=== PATIENT | male | born 1980 | race Caucasian/White ===

== ENCOUNTER → 2021-03-12 | Emergency (ER) | payer MEDICAID ==
[~2021-03-12] VITALS: Ht 182.9 cm; Wt 79.0 kg
[~2021-03-12] MED LIST: CEPH250T PO; SULF1TAB49 PO; cephalexin 250mg capsule PO ONE; sulfamethoxazole/trimethoprim DS (800/160mg) tablet PO ONE
[2021-03-12 01:44] VITALS: BP 124/86
== END | disposition home or self-care (01) ==
LOC: ER 01:37
DX: S51.802A Unspecified open wound of left forearm, initial encounter (principal); S51.801A Unspecified open wound of right forearm, initial encounter; L03.114 Cellulitis of left upper limb; L03.113 Cellulitis of right upper limb; F15.90 Other stimulant use, unspecified, uncomplicated; X58.XXXA Exposure to other specified factors, initial encounter; Z79.2 Long term (current) use of antibiotics; Z79.899 Other long term (current) drug therapy; Y93.89 Activity, other specified; Y92.89 Other specified places as the place of occurrence of the external cause; Y99.8 Other external cause status
CPT/HCPCS: 99283